=== PATIENT | female | born 1955 ===

== ENCOUNTER 2017-04-17 18:43 | Emergency (ER) | payer OTHER ==
--- OUTSIDE RECORDS SUMMARY | 2017-04-17 18:45 | XMS REPORT ---
Author Author [facility] Address Unknown Phone Unavailable Care Team Providers Care Polymer Engineer Name Role Phone MARISOL LEGGETT Unavailable Unavailable Problems This patient has no known problems. Allergies, Adverse Reactions, Alerts This patient has no known allergies or adverse reactions. Medications This patient has no known medications. Results Test Description Test Time Test Comments Text Results Atomic Results Result Comments KNEE RIGHT THREE VIEWS [place] [id number] Patient Name: MCKINLEY CAMPOS MR #: [id number] : 1955 Age/Sex: 61/F Req #: [id number] [facility] Physician: Ordered by: MARISOL LEGGETT MD Report # : [id number] Location: [facility] Room/Bed: Procedure: [id number] DX/KNEE RIGHT THREE VIEWS Exam Date: 01/16/17 Exam Time: 1100 REPORT STATUS: Signed PROCEDURE: X-RAY RIGHT KNEE, THREE OR MORE VIEWS COMPARISON: None. INDICATIONS: RIGHT MEDIAL KNEE PAIN FINDINGS: Normal mineralization. No acute displaced fracture or dislocation. Minimal tricompartmental degenerative changes, with small osteophytes noted in the patella and lateral aspect of the distal tibia. No lytic or blastic lesion. Small suprapatellar effusion. CONCLUSION: No acute displaced fracture or dislocation. Small suprapatellar effusion. Minimal tricompartmental degenerative joint disease. Sofia Michel M.D. Dictated by: Sofia Michel M.D. on 07/2016 at 19:49 Electronically approved by: Sofia Michel M.D. on 01/16/2017 at 19:49 Dictated By: SOFIA MICHEL MD 48 Transcribed By: HUSSEIN on 01/16/171948 COPY TO: MARISOL LEGGETT MD
--- NOTE | 2017-04-17 19:35 | Diagnostic Imaging Report ---
Exam: The first 2 views History: Pain Comparison: None. Findings: Transverse fracture of the distal radial diaphysis with dorsal angulation. Comminuted intraarticular fracture of the ulnar head with dorsal angulation. Soft tissue swelling. Impression: Transverse fracture of the distal radial diaphysis and comminuted intra-articular fracture of the ulnar head, both with dorsal angulation. Signed by: Dr. Tyrone Barrett M.D. on 04/17/2017 7:32 PM
[2017-04-17] MEDS ORDERED: HYDROCODONE/APAP 7.5MG-325MG 1 EA TAB PO STA (19:42)
--- NOTE | 2017-04-17 20:55 | Diagnostic Imaging Report ---
Exam: Left wrist 2 views History: Pain and trauma Comparison: None. Findings: See impression Impression: Status post closed reduction of the distal radial diaphysis fracture and intraarticular ulnar head fracture with improved alignment. Signed by: Dr. Tyrone Barrett M.D. on 04/17/2017 8:52 PM
== END 2017-04-17 20:52 | disposition home or self-care (01) ==
LOC: ER 18:43
DX: S52.325A Nondisplaced transverse fracture of shaft of left radius, initial encounter for closed fracture (principal); W01.0XXA Fall on same level from slipping, tripping and stumbling without subsequent striking against object, initial encounter; Y92.008 Other place in unspecified non-institutional (private) residence as the place of occurrence of the external cause; I10 Essential (primary) hypertension; F32.9 Major depressive disorder, single episode, unspecified
CPT/HCPCS: 99284

== ENCOUNTER 2018-10-12 05:46 | Emergency (ER) | payer OTHER ==
[~2018-10-12] VITALS: Ht 157.5 cm; Wt 77.1 kg
--- OUTSIDE RECORDS SUMMARY | 2018-10-12 05:47 | XMS REPORT | Summary of Care ---
Author Author [facility] Outpatient Imaging [facility] Outpatient Imaging [place] Address Unknown Phone Unavailable Encounter HQ Encntr_alias(FIN) [id number] Date(s): 06/25/17 - 06/25/17 [facility] Outpatient Imaging [place] [address] [place], [place] [address]- [phone] Discharge Disposition: Home or Self Care Attending Physician: Dave Nava MD Vital Signs No data available for this section Problem List No data available for this section Allergies, Adverse Reactions, Alerts No data available for this section Medications No data available for this section Results No data available for this section Immunizations No data available for this section Procedures No data available for this section Social History No data available for this section Assessment and Plan No data available for this section
--- OUTSIDE RECORDS SUMMARY | 2018-10-12 05:47 | XMS REPORT | Summary of Care ---
Author Author [facility] Outpatient Imaging [facility] Outpatient Imaging [place] Address Unknown Phone Unavailable Encounter HQ Encntr_alias(FIN) [id number] Date(s): 05/30/17 - 05/30/17 [facility] Outpatient Imaging [place] [address] [place], [place] [address]- [phone] Discharge Disposition: Home or Self Care Attending [...]
--- OUTSIDE RECORDS SUMMARY | 2018-10-12 05:47 | XMS REPORT | Continuity of Care Document ---
Author Author [employer] [facility] [employer] Address Unknown Phone Unavailable Care Team Providers Care Communication Electronic Technician Name Role Phone [employer] Unavailable Unavailable Problems Problem Status Onset Date Classification Date Reported Comments Source Pain in left wrist 05/22/2017 08/20/2017 [facility] M25.532 - PAIN IN LEFT WRIST Active 04/22/2017 [facility] Unspecified fracture of the lower end of left radius, initial encounter for closed fracture 07/30/2017 [facility] Unspecified fracture of lower end of left ulna, initial encounter for closed fracture 07/30/2017 [facility] Unspecified fracture of the lower end of left radius, subsequent encounter for closed fracture with routine healing 08/20/2017 [facility] Unspecified fracture of lower end of left ulna, subsequent encounter for closed fracture with routine healing 08/20/2017 [facility] Medications No Data Provided for This Section Allergies, Adverse Reactions, Alerts Substance Category Reaction Severity Reaction type Status Date Reported Comments Source Metaxalone Unknown Allergy to Substance Active 04/17/2017 [facility] Immunizations No Data Provided for This Section Results No Data Provided for This Section Pathology Reports No Data Provided for This Section Diagnostic Reports Report Value Date Source Forearm 2 views DX Exam: Left Forearm 2 views DX Clinical Indication: M79.632 - LT. ARM PAIN. Prior left arm surgery, follow-up Comparison: None. FINDINGS: The 2 views of the left forearm show interval removal of casting material and removal of the distal ulnar surgical pin. There is incomplete osseous union to the distal ulnar fracture with fracture cleft still clearly visualized. Surrounding callus material is noted. Alignment is stable. Volar plate and screw fixation of distal radius also shows stable alignment. Mild partial osseous union is present. Mild persistent dorsal angulation is present with associated dorsal tilt of the articular surface of the distal radius. Wrist joint is intact. Elbow joint is intact. Mild diffuse soft tissue prominence is noted. If there is further concern, recommend follow-up radiographs or bone scan for complete assessment. IMPRESSION: 1. Incomplete osseous union noted to the distal radial and ulnar fractures. Overall alignment is stable. SL: [id number] 06/25/2017 ANNETTE Stevenson Wrist complete DX Exam: Left Wrist complete DX Clinical Indication: M25.532 - M25.532. Prior radius and ulnar fractures, follow-up Comparison: None. FINDINGS: The 3 views of the left wrist show interval removal of casting material and removal of distal ulnar surgical pin. There is incomplete osseous union to the distal ulnar fracture with fracture cleft still clearly visualized. Surrounding callus material is noted. Alignment is stable. Volar plate and screw fixation of distal radius also shows stable alignment. Mild partial osseous union is present. Mild persistent dorsal angulation is present with associated dorsal tilt of the articular surface of the distal radius. Wrist joint is intact. Carpal and carpometacarpal alignment appears normal. Mild diffuse soft tissue prominence is noted. IMPRESSION: 1. Incomplete osseous union to the distal ulnar and radial fractures. Stable alignment noted. SL: [id number] 06/25/2017 ANNETTE Stevenson Forearm 2 views DX Patient Name: MCKINLEY CAMPOS : 1955; Age: 61 years y/o Female MR: [id number] * LEFT FOREARM, 2 views History: Status post open reduction internal fixation of fractures of the distal radial shaft and distal ulna, follow-up Technique: Frontal and lateral radiographs of the left forearm were obtained. There are no prior radiographs the left forearm. Radiographs of the left wrist from today, 05/14/2017, and 04/23/2017 were reviewed. IMPRESSION: 1. Postoperative changes and healing fracture of the distal radial diaphysis and distal ulna as described on the radiograph the left wrist performed today. Please refer to that report. 2. The remainder of the left radius and ulna are intact. The left elbow is grossly normal. SL: [id number] 05/30/2017 ANNETTE Stevenson Wrist complete DX Patient Name: MCKINLEY CAMPOS : 1955; Age: 61 years y/o Female MR: [id number] * LEFT WRIST, 3 views HISTORY: S52.372D - TOREY'S FX.; Technique: Frontal, oblique, and lateral radiographs of the left wrist were obtained in a splint. Radiographs of the left wrist of 05/14/2017 and 04/23/2017 were reviewed. IMPRESSION: 1. Stable postoperative changes. There is a bone plate and screws in the distal aspect of the radius for treatment of a radial fracture. There is a can in the distal ulna for treatment of a distal ulnar fracture. There is a displaced fracture fragment of the distal ulna which is displaced towards the ulnar side which is unchanged from the prior study. The appearance is unchanged from 05/14/2017. 2. No new abnormalities are seen. 3. The carpal bones proper appear to be intact and well aligned. 4. Again, no significant change from 05/14/2017. SL: [id number] 05/30/2017 ANNETTE Stevenson Wrist complete DX Left wrist complete DX, 05/14/2017 1:26 PM CDT HISTORY: Left wrist pain COMPARISON: 04/23/2017 FINDINGS: Status post volar plate and screw fixation of distal radial diaphysis fracture. Hardware appears intact. There is slight blurring of the fracture margins no fracture remains evident. Periosteal reaction is also noted. There appears to be mild apex volar bowing of the distal radius. There is also interval pain fixation of fracture the distal ulna. Partial incomplete healing noted as well. Carpals appear aligned and intact. There is marked soft tissue swelling. Cast material also noted. IMPRESSION: 1. Interval volar plate and screw fixation of distal radius fracture with partial healing. 2. Interval pin fixation of distal ulna fracture with partial healing. SL: [id number] 05/14/2017 ANNETTE Stevenson Wrist complete DX Wrist complete DX CLINICAL HISTORY: M25.532 - FX., PAIN FINDINGS/IMPRESSION: 3 views of the left wrist wrist are submitted for review. Overlying plaster cast limits evaluation of bones and soft tissues. No prior images are available for comparison. Distal metadiaphyseal fracture of the radius with radial displacement of the distal fracture fragment by approximately 5 mm. Mild volar displacement of the distal fracture fragment by 3 to 4 mm is also evident. There is minimally comminuted fracture of the distal ulna with mild ulnar displacement of the distal fracture fragment. SL: [id number] 04/23/2017 ANNETTE Stevenson Consultation Notes No Data Provided for This Section Discharge Summaries No Data Provided for This Section History and Physicals No Data Provided for This Section Vital Signs No Data Provided for This Section Encounters Location Location Details Encounter Type Encounter Number Reason For Visit Attending Provider ADM Date DC Date Status Source Registered Clinic [id number] MARISOL LEGGETT MD 09/04/2016 [facility] Registered Clinic [id number] MARISOL LEGGETT MD 01/16/2017 [facility] Departed Emergency Room [id number] ANGELIA DAWSON MD 04/17/2017 04/17/2017 [facility] [id number] Dave Elijah 04/23/2017 04/24/2017 [facility] [id number] Dave Elijah 05/14/2017 05/15/2017 [facility] [id number] Dave Elijah 05/30/2017 05/31/2017 [facility] [id number] Dave Elijah 06/25/2017 06/26/2017 [facility] Procedures No Data Provided for This Section Assessment and Plan No Data Provided for This Section Plan of Care Plan of Care Date Source Discharge Date 04/17/17 8:52pm Disposition HOME, SELF-CARE Condition at Discharge Stable Instructions/Education Provided Fractures - Forearm Fall Prevention RICE Therapy Forms Provided Work/School Excuse Prescriptions See Medication Section Referrals Dr. Luan Mejía MD Additional Instructions/Education Ortho: Keep your injured extremity elevated above your heart, use ice packs for 15 to 20 minutes every. Take Motrin 400mg to 600mg every 4-6 hours as needed for pain. Take the prescribed medication as directed for breakthrough pain. Follow up with your Orthopedic Dr. Luan Mejía MD, call next day to schedule your follow-up appointment. Return to the ER for any shortness of breath, increased pain to injured extremity, discoloration of extremity, decreased circulation to the extremity or any new concerns. 04/17/2017 [facility] Social History Social History Date Source No data available for this section 05/15/2017 [facility] Smoking Status Start Date Stop Date Never Smoker 04/17/2017 [facility] Family History No Data Provided for This Section Advance Directives Order Name Results Value Date Source Advance Directives Advance Directives Directive Response Recorded Date/Time Does the patient have an advance directive? Yes 09/04/16 1:01pm If yes, is advance directive on file with [facility]? No 09/04/16 1:01pm If not on file with [facility] will patient provide a copy? No 09/04/16 1:01pm 04/17/2017 [facility] Functional Status No Data Provided for This Section
--- OUTSIDE RECORDS SUMMARY | 2018-10-12 05:47 | XMS REPORT | Summary of Care ---
Author Author [facility] Outpatient Imaging [facility] Outpatient Imaging [place] Address Unknown Phone Unavailable Encounter HQ Jessiacntr_tracey(FIN) [id number] Date(s): 05/14/17 - 05/14/17 [facility] Outpatient Imaging [place] [address] [facility] [address] [place], [place] [address]- [phone] Encounter Diagnosis Pain in left wrist (Final) - 05/21/17 Unspecified fracture of the lower end of left radius, subsequent encounter for c losed fracture with routine healing (Final) - Unspecified fracture of lower end of left ulna, subsequent encounter for closed fracture with routine healing (Final) - Discharge Disposition: Home or Self Care Attending [...]
--- OUTSIDE RECORDS SUMMARY | 2018-10-12 05:47 | XMS REPORT | Summary of Care ---
Author Author [facility] Outpatient Imaging [facility] Outpatient Imaging [place] Address Unknown Phone Unavailable Encounter HQ Jessicantr_tracey(FIN) [id number] Date(s): 04/23/17 - 04/23/17 [facility] Outpatient Imaging [place] [address] [facility] [place], [place] [address]- [phone] Encounter Diagnosis Pain in left wrist (Final) - 04/29/17 Unspecified fracture of the lower end of left radius, initial encounter for clos ed fracture (Final) - Unspecified fracture of lower end of left ulna, initial encounter for closed fra cture (Final) - Discharge Disposition: Home or Self [...]
[2018-10-12] MEDS ORDERED: HYDROCODONE/APAP 7.5MG-325MG 1 EA TAB PO PRN (06:15)
[2018-10-12] MEDS ORDERED: LIDOCAINE 5% PATCH TP SCH (06:15)
--- NOTE | 2018-10-12 06:48 | NUR ---
REPORT GIVEN TO DAMON SAHA
--- NOTE | 2018-10-12 06:57 | Diagnostic Imaging Report ---
Exam: Left rib series History: Fall 2 days ago, rib pain Comparison: None available Findings: There is an acute, mildly displaced fracture of the left sixth rib and an acute, nondisplaced fracture of the left seventh rib. Minimally displaced fractures of the eighth and ninth ribs are also noted. Surgical anchors within the left humeral head. Surgical material above the right humerus. No pneumothorax. Lungs are grossly clear with bibasilar opacities likely atelectasis. Tortuous thoracic aorta with otherwise normal cardiomediastinal contour. Impression: Acute mildly displaced fractures of the left sixth through ninth ribs. No pneumothorax. Signed by: Dr. Praveen Maya M.D. on 10/12/2018 6:53 AM
[2018-10-12 07:03] VITALS: BP 141/80
[2018-10-12] MEDS ORDERED: LIDOPATCH1 EACH TOP (07:04)
[2018-10-12] MEDS ORDERED: ULTRAM50 MG PO (07:05)
== END 2018-10-12 07:26 | disposition home or self-care (01) ==
LOC: ER 05:46
DX: G89.11 Acute pain due to trauma (principal); S20.219A Contusion of unspecified front wall of thorax, initial encounter; W01.198A Fall on same level from slipping, tripping and stumbling with subsequent striking against other object, initial encounter; Y93.E1 Activity, personal bathing and showering; Y92.002 Bathroom of unspecified non-institutional (private) residence as the place of occurrence of the external cause; I10 Essential (primary) hypertension; F32.9 Major depressive disorder, single episode, unspecified; F41.9 Anxiety disorder, unspecified
CPT/HCPCS: 71101; 99283

== ENCOUNTER 2020-02-08 11:50 | Emergency (ER) | payer OTHER ==
[~2020-02-08] VITALS: Ht 157.5 cm; Wt 77.1 kg
[~2020-02-08 11:50] MED LIST: LIDOPATCH1 EACH TOP; ULTRAM50 MG PO
[2020-02-08] MEDS ORDERED: ULTRAM50 MG PO (13:45)
[2020-02-08 13:51] VITALS: BP 143/100
== END 2020-02-08 13:53 | disposition home or self-care (01) ==
LOC: ER 12:14
DX: M71.21 Synovial cyst of popliteal space [Baker], right knee (principal); I10 Essential (primary) hypertension
CPT/HCPCS: 93971; 99283

== ENCOUNTER 2020-08-31 10:32 | Inpatient (IN) | payer OTHER ==
[~2020-08-31] VITALS: Ht 157.5 cm; Wt 113.4 kg
[2020-08-31 11:25] LABS: BASOPHILS % 0.3 % (0.0-1.0); EOSINOPHILS % 0.3 % (0.0-6.0); HEMATOCRIT 40.4 % (34.2-44.1); HEMOGLOBIN 13.2 g/dL (12.0-16.0); LYMPHOCYTES # (AUTO) 1.6 (1.0-3.2); LYMPHOCYTES % 13.2 % (18.0-39.1); MEAN CORPUSCULAR HGB CONC 32.7 g/dL (31-35); MEAN CORPUSCULAR VOLUME 94.8 fL (81-99); MONOCYTES % 8.5 % (4.4-11.3); NEUTROPHILS # (AUTO) 9.1 (2.1-6.9); PLATELET COUNT 230 x10e3/uL (140-360); RED BLOOD COUNT 4.26 x10e6/uL (3.6-5.1); RED CELL DISTRIBUTION WIDTH 14.2 % (11.7-14.4)
[2020-08-31] MEDS ORDERED: MIDAZOLAM HCL 2 MG/2 ML VIAL ONE (11:55)
[2020-08-31] MEDS ORDERED: FENTANYL CITRATE/PF 100MCG/2 ML INJ ONE (11:55)
[2020-08-31 11:56] LABS: ALBUMIN 3.4 g/dL (3.5-5.0); ALBUMIN/GLOBULIN RATIO 0.6 (0.8-2.0); ANION GAP 10.6 mmol/L (8-16); CREATININE, SERUM 0.84 mg/dL (0.57-1.11); POTASSIUM 3.6 mmol/L (3.5-5.1)
[2020-08-31 12:29] LABS: CLARITY,URINE CLOUDY (CLEAR); COLOR,URINE AMBER (YELLOW); KETONES,URINE TRACE (NEGATIVE); LEUKOCYTE ESTERASE ,URINE NEGATIVE (NEGATIVE); NITRITE,URINE POSITIVE (NEGATIVE); PROTEIN,URINE DIPSTICK 2+ (NEGATIVE); URINE UROBILINOGEN 0.2 mg/dL (0.2 - 1)
[2020-08-31] MEDS ORDERED: SODIUM CHLORIDE 0.9% 50ML 50 ML ONE (12:34)
[2020-08-31] MEDS ORDERED: IOPAMIDOL 370 MG/ML 200 ML INFUS..BTL INJ ONE (12:34)
[2020-08-31 12:40] LABS: AMORPHOUS SEDIMENT,URINE MANY (FEW); BACTERIA,URINE MANY /HPF; EPITHELIAL CELLS,URINE FEW /LPF; RBC,URINE 0-5 /HPF (0-5)
[2020-08-31] MEDS ORDERED: PIPERACILLIN/TAZOBACTAM 3.375 GM in SODIUM CHLORIDE 0.9% 50ML 50 ML IV STA (13:16)
[2020-08-31] MEDS ORDERED: ONDANSETRON HCL INJ 2MG/ML 2ML 2 MG/ML VIAL IV STA (13:24)
[2020-08-31] MEDS ORDERED: MORPHINE SULFATE INJ 4 MG/ML INJ 1ML IV STA (13:24)
[2020-08-31] MEDS ORDERED: MORPHINE SULFATE INJ 4 MG/ML INJ 1ML IV PRN (14:15)
[2020-08-31] MEDS ORDERED: D5.45%NS/KCL 20MEQ 1,000 ML IV SCH (14:15)
[2020-08-31] MEDS ORDERED: ONDANSETRON HCL INJ 2MG/ML 2ML 2 MG/ML VIAL IV PRN (14:15)
[2020-08-31] MEDS ORDERED: BUPIVACAINE HCL 0.5% INJ 30 ML VIAL INJ ONE (14:37)
[2020-08-31] MEDS: DEXTROSE 5%/LACTATED RINGERS 1,000 ML IV SCH ×2 (17:15→23:15)
[2020-08-31] MEDS: CEFTRIAXONE 2 GM in SODIUM CHLORIDE 0.9% 100 ML IV SCH (17:45)
[2020-08-31] MEDS ORDERED: ALBUTEROL/IPRATROPIUM 3 ML NEB ONE (18:11)
[2020-08-31] MEDS: METRONIDAZOLE 500MG/NS 100ML 100 ML IV SCH (18:30)
[2020-08-31 19:47] LABS: CHOL/HDL RATIO 2.8 (3.0-3.6)
[2020-08-31] MEDS: HYDROMORPHONE 1MG/1ML INJ IV PRN (22:52)
[2020-09-01] VITALS (7 sets, daily range): BP systolic 113–129; BP diastolic 70–76
[2020-09-01] MEDS: METRONIDAZOLE 500MG/NS 100ML 100 ML IV SCH ×4 (00:26→18:09)
[2020-09-01] MEDS: HYDROMORPHONE 1MG/1ML INJ IV PRN ×3 (05:06→20:37)
[2020-09-01 05:21] LABS: BASOPHILS % 0.2 % (0.0-1.0); HEMATOCRIT 36.7 % (34.2-44.1); HEMOGLOBIN 11.8 g/dL (12.0-16.0); LYMPHOCYTES # (AUTO) 0.7 (1.0-3.2); LYMPHOCYTES % 5.8 % (18.0-39.1); MEAN CORPUSCULAR HEMOGLOBIN 30.6 pg (28-32); MEAN CORPUSCULAR HGB CONC 32.2 g/dL (31-35); MEAN CORPUSCULAR VOLUME 95.1 fL (81-99); MONOCYTES # (AUTO) 0.9 (0.2-0.8); MONOCYTES % 7.1 % (4.4-11.3); NEUTROPHILS # (AUTO) 10.8 (2.1-6.9); NEUTROPHILS % 86.3 % (38.7-80.0); PLATELET COUNT 216 x10e3/uL (140-360); RED BLOOD COUNT 3.86 x10e6/uL (3.6-5.1)
[2020-09-01 05:41] LABS: ALBUMIN 2.7 g/dL (3.5-5.0); ALBUMIN/GLOBULIN RATIO 0.5 (0.8-2.0); ANION GAP 10.9 mmol/L (8-16); CALCIUM 8.3 mg/dL (8.4-10.2); CREATININE, SERUM 0.72 mg/dL (0.57-1.11); POTASSIUM 3.9 mmol/L (3.5-5.1)
[2020-09-01] MEDS: ONDANSETRON HCL INJ 2MG/ML 2ML 2 MG/ML VIAL IV PRN ×2 (10:40→20:31)
[2020-09-01] MEDS: DEXTROSE 5%/LACTATED RINGERS 1,000 ML IV SCH ×2 (10:41→17:15)
[2020-09-01] MEDS: HYDROCODONE/APAP 7.5MG-325MG 1 EA TAB PO PRN ×2 (14:00→18:09)
[2020-09-01] MEDS: CEFTRIAXONE 2 GM in SODIUM CHLORIDE 0.9% 100 ML IV SCH (16:55)
[2020-09-01] MEDS ORDERED: SEVOFLURANE INHAL SOLN 250 ML PEN BTL ONE (17:05)
[2020-09-01] MEDS ORDERED: LIDOCAINE HCL 2% LOCAL INJ 5 ML SDV VIAL INJ ONE (17:05)
[2020-09-01] MEDS ORDERED: ONDANSETRON HCL INJ 2MG/ML 2ML 2 MG/ML VIAL ONE (17:05)
[2020-09-01] MEDS ORDERED: NEOSTIGMINE 1 MG/ML 10ML VIAL ONE (17:05)
[2020-09-01] MEDS ORDERED: KETOROLAC TROMETHAMINE 30 MG/ML VIAL ONE (17:05)
[2020-09-01] MEDS ORDERED: DEXAMETHASONE SOD PHOS INJ 4 MG/ML VIAL ONE (17:05)
[2020-09-01] MEDS ORDERED: ATROPINE SULFATE 1 MG/ML VIAL ONE (17:05)
[2020-09-01] MEDS ORDERED: ROCURONIUM BROMIDE 10 MG/ML 5ML VIAL IV ONE (17:05)
[2020-09-01] MEDS ORDERED: POVIDONE IODINE 0.05% 0.05 % ML PO ONE (17:05)
[2020-09-01] MEDS ORDERED: SUCCINYLCHOLINE CHLORIDE 20 MG/ML 10ML VIAL ONE (17:05)
[2020-09-01] MEDS ORDERED: PROPOFOL IV EMULSION 10 MG/ML 20 ML VIAL ONE (17:05)
[2020-09-02] VITALS (7 sets, daily range): BP systolic 112–136; BP diastolic 56–87
[2020-09-02] MEDS: METRONIDAZOLE 500MG/NS 100ML 100 ML IV SCH ×4 (00:50→18:06)
[2020-09-02] MEDS: HYDROCODONE/APAP 7.5MG-325MG 1 EA TAB PO PRN ×5 (03:40→22:05)
[2020-09-02] MEDS: CEFTRIAXONE 2 GM in SODIUM CHLORIDE 0.9% 100 ML IV SCH (16:04)
[2020-09-02 17:31] LABS: BASOPHILS % 0.4 % (0.0-1.0); EOSINOPHILS # (AUTO) 0.2 (0.0-0.4); EOSINOPHILS % 1.5 % (0.0-6.0); HEMATOCRIT 35.9 % (34.2-44.1); HEMOGLOBIN 11.3 g/dL (12.0-16.0); LYMPHOCYTES # (AUTO) 1.5 (1.0-3.2); LYMPHOCYTES % 15.4 % (18.0-39.1); MEAN CORPUSCULAR HEMOGLOBIN 30.7 pg (28-32); MEAN CORPUSCULAR HGB CONC 31.5 g/dL (31-35); MEAN CORPUSCULAR VOLUME 97.6 fL (81-99); MONOCYTES % 9.9 % (4.4-11.3); NEUTROPHILS # (AUTO) 7.2 (2.1-6.9); NEUTROPHILS % 72.1 % (38.7-80.0); PLATELET COUNT 252 x10e3/uL (140-360); RED BLOOD COUNT 3.68 x10e6/uL (3.6-5.1); RED CELL DISTRIBUTION WIDTH 14.3 % (11.7-14.4)
[2020-09-02 17:45] LABS: ANION GAP 12.8 mmol/L (8-16); CALCIUM 8.3 mg/dL (8.4-10.2); CREATININE, SERUM 0.72 mg/dL (0.57-1.11); POTASSIUM 3.8 mmol/L (3.5-5.1)
[2020-09-03] VITALS: BP 148/66
[2020-09-03] MEDS: METRONIDAZOLE 500MG/NS 100ML 100 ML IV SCH ×2 (00:35→05:41)
[2020-09-03 04:00] VITALS: BP 146/65
[2020-09-03] MEDS: HYDROCODONE/APAP 7.5MG-325MG 1 EA TAB PO PRN ×2 (04:55→08:55)
[2020-09-03 07:50] VITALS: BP 135/82
[2020-09-03 08:57] VITALS: BP 135/82
[2020-09-03] MEDS ORDERED: TYLENOL325 MG PO (09:52)
[2020-09-03] MEDS ORDERED: CEPHALEXIN500 MG PO (09:52)
[2020-09-03] MEDS ORDERED: PANTOPRAZOLE SO40 MG PO (09:52)
[2020-09-03] MEDS ORDERED: SENNA8.6 MG PO (09:52)
[2020-09-03] MEDS ORDERED: FLAGYL500 MG PO (09:52)
[2020-09-03] MEDS ORDERED: ZOFRAN4 MG PO (09:52)
== END 2020-09-03 11:05 | disposition home or self-care (01) | DRG 339 ==
LOC: ER 12:08 → ERHOLD 14:15 → OBSVTOIN 17:14 → MED/SURG 20:11
PROVIDERS: ADMIT Internal Medicine; ATTEND Internal Medicine
PROC: 0DTJ4ZZ Resection of Appendix, Percutaneous Endoscopic Approach (ICD-10-PCS; principal; 2020-08-31 14:00)
DX: K35.33 Acute appendicitis with perforation, localized peritonitis, and gangrene, with abscess (principal); Z68.42 Body mass index [BMI] 45.0-49.9, adult; I10 Essential (primary) hypertension; F41.9 Anxiety disorder, unspecified; E66.01 Morbid (severe) obesity due to excess calories
CPT/HCPCS: 36415; 74177; 80048; 80053; 80061; 81001; 83036; 85025; 88304; 99284; J0330; J0461; J0696; J1100; J1170; J1885; J2001; J2250; J2270; J2405; J2543; J2710; J3010; J7050; Q9967

== ENCOUNTER 2023-02-25 20:09 | Emergency (ER) | payer OTHER ==
[~2023-02-25] VITALS: Ht 157.5 cm; Wt 113.4 kg
[~2023-02-25 20:09] MED LIST changes: +CEPHALEXIN500 MG PO; +FLAGYL500 MG PO; +PANTOPRAZOLE SO40 MG PO; +SENNA8.6 MG PO; +TYLENOL325 MG PO; +ZOFRAN4 MG PO
[2023-02-25 22:30] VITALS: O2SAT 98
[2023-02-25] MEDS ORDERED: MELOXICAM7.5 MG PO (22:33)
== END 2023-02-25 22:37 | disposition home or self-care (01) ==
LOC: ER 20:15
DX: M25.562 Pain in left knee (principal); M13.862 Other specified arthritis, left knee; I10 Essential (primary) hypertension; F41.9 Anxiety disorder, unspecified; F32.A Depression, unspecified
CPT/HCPCS: 99283